=== PATIENT | female | born 1990 | race American Indian/Alaskan Native ===

== ENCOUNTER 2021-08-19 21:13 | Outpatient (CLI) | payer BC ==
[2021-08-19 21:55] VITALS: BP 109/59
[2021-08-19] MEDS ORDERED: LACTATED RINGERS 1,000 ML IV ONE (22:04)
[2021-08-19 22:24] LABS: Bacteria,Urine 1+ /HPF (Negative); Mucus,Urine FEW /HPF
[2021-08-19 22:29] LABS: Bilirubin,Urine Negative (Negative); Blood,Urine Small (Negative); Color,Urine Yellow (Yellow); Urobilinogen,Urine < 2.0 mg/dL (<2.0)
--- NOTE | 2021-08-20 00:04 | Ultrasound Report ---
ULTRASOUND OBSTETRIC LIMITED ULTRASOUND BIOPHYSICAL PROFILE INDICATION / CLINICAL INFORMATION: WELLBEING. RIKA. Rule out placental abruption. Clinical Gestational Age (GA) in weeks, days: 30, 2 TECHNIQUE: Transabdominal. COMPARISON: None available. FINDINGS: BREATHING MOVEMENT = 2 GROSS BODY MOVEMENT = 2 TONE = 2 QUALITATIVE AMNIOTIC FLUID VOLUME = 2 TOTAL BIOPHYSICAL SCORE = 8/8 HEART RATE (beats per minute): 137 AMNIOTIC FLUID INDEX (cm) = 16.0 (normal = 7-24 cm) PRESENTATION: Breech. ADDITIONAL FINDINGS: Placenta is posterofundal and grade 0. No placental abruption. IMPRESSION: 1. Biophysical Score = 8/8 2. Normal amniotic fluid volume. 3. No placental abruption. Signer Name: Avery Wood MD Signed: 08/20/2021 12:00 AM Workstation Name: [id number]
== END 2021-08-20 00:03 | disposition home or self-care (01) ==
LOC: TRG 21:13 → APU 21:15 → TRG 08-20 00:03
PROVIDERS: ATTEND Obstetrics & Gynecology
DX: O46.93 Antepartum hemorrhage, unspecified, third trimester (principal); O26.893 Other specified pregnancy related conditions, third trimester; R10.30 Lower abdominal pain, unspecified; Z3A.30 30 weeks gestation of pregnancy
CPT/HCPCS: 59025; 76815; 76819; 81001; 96360; J7120